=== PATIENT | female | born 1980 | race Caucasian/White ===

== ENCOUNTER 2020-07-19 20:24 | Emergency (ER) | payer OTHER ==
[~2020-07-19] VITALS: Ht 160 cm; Wt 92.5 kg
[~2020-07-19 20:24] MED LIST: ACCU MC; ACET-8386 PO; CLIN300C6 PO; GLIP5TER PO; METF500T PO; SULF-59 PO
[2020-07-19 20:36] VITALS: BP 135/97
--- NOTE | 2020-07-19 20:47 | NUR ---
PT AMBULATED TO BED 04, STEADY GAIT
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
--- NOTE | 2020-07-19 20:59 | NUR ---
ermd at bedside evaluating pt
[2020-07-19] MEDS ORDERED: KETOROLAC 30 MG/ML VIAL IM ONE (21:10)
[2020-07-19 21:30] VITALS: BP 135/97
== END 2020-07-19 21:30 | disposition home or self-care (01) ==
LOC: MED 20:24
DX: S16.1XXA Strain of muscle, fascia and tendon at neck level, initial encounter (principal); M25.511 Pain in right shoulder; M25.512 Pain in left shoulder; E11.9 Type 2 diabetes mellitus without complications; Z88.5 Allergy status to narcotic agent; Z79.899 Other long term (current) drug therapy; Z79.84 Long term (current) use of oral hypoglycemic drugs; V49.9XXA Car occupant (driver) (passenger) injured in unspecified traffic accident, initial encounter; Y93.89 Activity, other specified; Y92.89 Other specified places as the place of occurrence of the external cause; Y99.8 Other external cause status
CPT/HCPCS: 96372; 99283; J1885

== ENCOUNTER 2020-11-10 09:09 | Emergency (ER) | payer OTHER ==
[~2020-11-10] VITALS: Ht 160 cm; Wt 88.5 kg
[2020-11-10 09:17] VITALS: BP 124/79
--- NOTE | 2020-11-10 09:23 | NUR ---
PATIENT TRIAGED. WAITING IN LOBBY.
[2020-11-10] MEDS ORDERED: NACL 0.9% 1,000 ML IV ONE ×2 (09:35→13:25)
--- NOTE | 2020-11-10 09:56 | NUR ---
PT WALKED TO CHAIR B. IV FLUIDS STARTED ORDERED.
[2020-11-10] MEDS ORDERED: ONDANSETRON 4 MG/2 ML VIAL IVP ONE ×2 (10:55→16:20)
[2020-11-10 11:48] LABS: BASOPHILS % (AUTO) 0.5 % (0.0-2.0); EOSINOPHILS % (AUTO) 0.1 % (0.0-4.0); HEMATOCRIT 44.7 % (36-48); HEMOGLOBIN 15.2 g/dL (12.0-16.0); LYMPHOCYTES # (AUTO) 2.2 K/uL (2.5-16.5); LYMPHOCYTES % (AUTO) 32.5 % (20.5-51.1); MEAN CORPUSCULAR HEMOGLOBIN 30 pg (27-31); MEAN CORPUSCULAR HGB CONC 34 g/dL (33-37); MONOCYTES # (AUTO) 0.8 K/uL (0.8-1.0); NEUTROPHILS # (AUTO) 3.6 K/uL (1.8-7.7); NEUTROPHILS % (AUTO) 54.9 % (42.2-75.2); PLATELET COUNT (AUTO) 247 K/uL (140-450); RED BLOOD CELL COUNT(AUTO) 5.03 MIL/uL (4.20-5.40); RED CELL DISTRIBUTION WIDTH 11.8 % (11.6-13.7); WHITE BLOOD COUNT (AUTO) 6.6 K/uL (4.8-10.8)
[2020-11-10 12:18] LABS: ANION GAP 16.3 (8-16); CARBON DIOXIDE 23.4 mmol/L (21-32); CREATININE 0.9 mg/dL (0.6-1.3); POTASSIUM 5.7 mmol/L (3.5-5.1); TOTAL BILIRUBIN 0.4 mg/dL (0.0-1.0)
--- NOTE | 2020-11-10 13:12 | NUR ---
TAKE PT TO [facility].
[2020-11-10] MEDS ORDERED: INSULIN REGULAR, HUMAN 100 UNIT/ML VIAL IV ONE (13:20)
--- NOTE | 2020-11-10 15:46 | NUR ---
PT STATES SHE DOES NOT TAKE ANY MEDICATIONS AT HOME.
[2020-11-10 16:30] VITALS: BP 118/75
--- NOTE | 2020-11-10 16:30 | NUR ---
Patient discharged with v/s stable. Written and verbal after care instructions given and explained. Patient alert, oriented and verbalized understanding of instructions. Ambulatory with steady gait. All questions addressed prior to discharge. ID band removed. Patient advised to follow up with PMD. Rx of Metformin and Zofran given. Patient educated on indication of medication including possible reaction and side effects. Opportunity to ask questions provided and answered.
--- NOTE | 2020-11-12 16:58 | NUR ---
LATE ENTRY -- INSULIN IVP ENDED 2817 11/10/20
== END 2020-11-10 16:30 | disposition home or self-care (01) ==
LOC: MED 09:09
DX: E11.9 Type 2 diabetes mellitus without complications (principal); R11.2 Nausea with vomiting, unspecified; E86.0 Dehydration; Z79.2 Long term (current) use of antibiotics; Z79.891 Long term (current) use of opiate analgesic; Z79.84 Long term (current) use of oral hypoglycemic drugs; Z88.5 Allergy status to narcotic agent
CPT/HCPCS: 36415; 71045; 80053; 82009; 83605; 83690; 84132; 84484; 85025; 93005; 96361; 96374; 96375; 96376; 99285; J1815; J2405; J7030

== ENCOUNTER 2020-11-19 17:24 | Observation (INO) | payer OTHER, SELFPAY ==
[~2020-11-19] VITALS: Ht 160 cm; Wt 88.5 kg
[2020-11-19 17:58] VITALS: BP 125/76
[2020-11-19 20:10] LABS: BASOPHILS # (AUTO) 0.1 K/uL (0.00-0.22); BASOPHILS % (AUTO) 0.7 % (0.0-2.0); EOSINOPHILS # (AUTO) 0.1 K/uL (0-0.4); EOSINOPHILS % (AUTO) 0.8 % (0.0-4.0); HEMATOCRIT 42.1 % (36-48); HEMOGLOBIN 14.6 g/dL (12.0-16.0); LYMPHOCYTES # (AUTO) 3.3 K/uL (2.5-16.5); LYMPHOCYTES % (AUTO) 36.2 % (20.5-51.1); MEAN CORPUSCULAR HEMOGLOBIN 31 pg (27-31); MEAN CORPUSCULAR HGB CONC 35 g/dL (33-37); MEAN CORPUSCULAR VOLUME 88.1 fL (80-94); MONOCYTES # (AUTO) 0.8 K/uL (0.8-1.0); MONOCYTES % (AUTO) 8.6 % (1.7-9.3); NEUTROPHILS # (AUTO) 4.8 K/uL (1.8-7.7); NEUTROPHILS % (AUTO) 53.7 % (42.2-75.2); PLATELET COUNT (AUTO) 411 K/uL (140-450); RED BLOOD CELL COUNT(AUTO) 4.78 MIL/uL (4.20-5.40); RED CELL DISTRIBUTION WIDTH 12.3 % (11.6-13.7)
[2020-11-19 21:05] LABS: ALBUMIN 3.4 g/dL (3.4-5.0); ANION GAP 14.3 (8-16); CARBON DIOXIDE 27.7 mmol/L (21-32); CREATININE 0.8 mg/dL (0.6-1.3); TOTAL BILIRUBIN 0.3 mg/dL (0.0-1.0)
[2020-11-19] MEDS ORDERED: INSULIN REGULAR, HUMAN 100 UNIT/ML VIAL IV SCH (21:35)
--- NOTE | 2020-11-19 21:55 | NUR ---
SEEN AND EXAMINED BY BROWN WITH ORDERS AND CARRIED OUT
[2020-11-19 22:26] LABS: MAGNESIUM 2.1 mg/dL (1.8-2.4)
[2020-11-19] MEDS: NACL 0.9% 1,000 ML IV SCH ×3 (22:36→23:37)
[2020-11-19 22:37] LABS: APPEARANCE,URINE CLEAR (CLEAR); BILIRUBIN,URINE NEGATIVE (NEGATIVE); BLOOD, URINE 2+ (NEGATIVE); COLOR,URINE YELLOW (YELLOW); LEUKOCYTE ESTERASE ,URINE NEGATIVE (NEGATIVE); NITRITE, URINE NEGATIVE (NEGATIVE); UGLUCOSE 3+ (NEGATIVE)
[2020-11-19 23:07] LABS: WBC,URINE 0-5 /HPF (0-5)
[2020-11-20] MEDS ORDERED: ONDANSETRON 4 MG/2 ML VIAL IVP PRN (00:40)
[2020-11-20] MEDS ORDERED: ACETAMINOPHEN 325 MG TAB PO PRN (00:40)
[2020-11-20] MEDS ORDERED: HYDROcodone/APAP 5/325 MG 1 TAB TAB PO PRN (00:40)
[2020-11-20] MEDS ORDERED: LORazepam 2 MG/ML VIAL IVP PRN (00:40)
[2020-11-20] MEDS ORDERED: DEXTROSE 50% 50 ML SYR IVP PRN (00:40)
--- NOTE | 2020-11-20 02:46 | NUR ---
PT MOVED TO BED #11
--- NOTE | 2020-11-20 03:30 | NUR ---
RECEIVED REPORT FROM YOUSIF LOPEZ FOR CONTINUATION OF CARE AT THIS TIME.
--- NOTE | 2020-11-20 03:40 | NUR ---
PT IS RESTING, VISIBLE RISE AND FALL OF CHEST NOTED. NO ACUTE DISTRESS AT THIS TIME. CALL LIGHT WITHIN REACH. PT CONNECTED TO THE ATMOSPHERIC TECHNICIAN. SIDE RAILSX1. WILL CONTINUE TO MONITOR.
[2020-11-20] MEDS: NACL 0.9% 1,000 ML IV SCH ×2 (03:43→14:49)
--- NOTE | 2020-11-20 05:31 | NUR ---
NEW IV STARTED---20 G RIGHT WRIST. NS RUNNING AT 80 ML/HR PER MD ORDERS.
--- NOTE | 2020-11-20 05:32 | NUR ---
PT IS RESTING, LIGHTS TURNED OFF, VISIBLE RISE AND FALL OF CHEST NOTED. NO ACUTE DISTRESS AT THIS TIME. CALL LIGHT WITHIN REACH. PT CONNECTED TO THE VENEER STOCK LAYER. SAO2 @97% ON RA. SIDE RAILSX1. WILL CONTINUE TO MONITOR.
--- NOTE | 2020-11-20 05:46 | NUR ---
THEE AND MJ MELENDEZ COLLECTED AND WALKED OVER TO LAB AT THIS TIME.
--- NOTE | 2020-11-20 05:49 | NUR ---
CALLED PHARMACY REGARDING PTS ALLERGY TO CODEINE & NORCO BEING ORDERED. PHARMACIST STATED THAT THE MD IS AWARE OF THE ALLERGY.
--- NOTE | 2020-11-20 06:30 | NUR ---
PT IS RESTING, LIGHTS TURNED OFF, VISIBLE RISE AND FALL OF CHEST NOTED. NO ACUTE DISTRESS AT THIS TIME. CALL LIGHT WITHIN REACH. PT CONNECTED TO THE SALES SUPPORT ADMINISTRATOR. SAO2 @98% ON RA. SIDE RAILSX1. WILL CONTINUE TO MONITOR.
--- NOTE | 2020-11-20 06:55 | NUR ---
BLOOD SUGAR WAS 320 WILL ADMIN HUMALOG PER INSULIN SLIDING SCALE
[2020-11-20] MEDS: BLOOD GLUCOSE MONITORING 1 DEV DEV FS SCH ×2 (07:01→11:24)
[2020-11-20] MEDS: INSULIN LISPRO SLIDING SCALE 100 UNITS/ML VIAL SUBQ PRN ×2 (07:23→12:06)
--- NOTE | 2020-11-20 07:37 | NUR ---
TRANSFER OF CARE AT THIS TIME FROM YOUSIF OLSON
--- NOTE | 2020-11-20 07:43 | NUR ---
PER BLOOD BANK, CONVALESCENT PLASMA READY TO BE PICKED UP.
--- NOTE | 2020-11-20 08:15 | NUR ---
PT SITTING UP IN BED EATING BREAKFAST.
--- NOTE | 2020-11-20 08:34 | NUR ---
PT GIVEN A WATER PITCHER AT BEDSIDE. ALL NEEDS MET AT THIS TIME
[2020-11-20] MEDS ORDERED: ENOXAPARIN 40 MG/0.4 ML SYR SUBQ SCH (09:00)
--- NOTE | 2020-11-20 09:02 | NUR ---
PT ASLEEP, RESTING IN BED, RR EVEN AND UNLABORED.
--- NOTE | 2020-11-20 10:16 | NUR ---
PATIENT HAS BEEN SCREENED AND CATEGORIZED MODERATE NUTRITION RISK. PATIENT WILL BE SEEN WITHIN 3-5 DAYS OF ADMISSION. 11/23/20-11/25/[address]
--- NOTE | 2020-11-20 10:58 | NUR ---
PT AMBULATED TO BATHROOM, STEADY GAIT.
--- NOTE | 2020-11-20 11:27 | NUR ---
PT REPORTING HEADACHE. PT GIVEN PRN TYLENOL
--- NOTE | 2020-11-20 11:37 | NUR ---
LAB CALLED TO DRAW PT.
--- NOTE | 2020-11-20 11:47 | NUR ---
LAB AT BEDSIDE.
[2020-11-20 13:13] LABS: ANION GAP 15.2 (8-16); CARBON DIOXIDE 25.3 mmol/L (21-32); CREATININE 0.6 mg/dL (0.6-1.3); POTASSIUM 3.5 mmol/L (3.5-5.1)
--- NOTE | 2020-11-20 13:58 | NUR ---
PT ASLEEP IN BED, RR EVEN AND UNLABORED.
--- NOTE | 2020-11-20 14:00 | NUR ---
DC [age] YRS OLD FEMALE PATIENT WAS ADMITTED FROM HOME WITH A DX OF WEAKNESS AND HYPERGLYCEMIA. BLOOD GLUCOSE ON ADMISSION WAS 478. PT HAS A HX OF DIABETES. RAPID COVID TEST NEGATIVE HEAD CT SHOWED NO SIGNIFICANT INTRACRANIAL PATHOLOGY. ADMINISTERED REGULAR INSULIN BLOOD GLUCOSE 286. DC PLAN TO GO HOME WHEN STABLE
--- NOTE | 2020-11-20 14:14 | NUR ---
VS WNL. RR EVEN AND UNLABORED. BED IN LOWEST POSITION. ALL NEEDS MET AT THIS TIME.
--- NOTE | 2020-11-20 15:15 | NUR ---
PT GIVEN A PITCHER OF ICE WATER AND CRACKERS.
[2020-11-20] MEDS ORDERED: INSU100S22 SUBQ (15:29)
--- NOTE | 2020-11-20 15:34 | NUR ---
SOCIAL WORK NOTE: SW WAS UNABLE TO MEET PATIENT AT BEDSIDE DUE TO MEDICAL CONDITION. ERIKA LEFT WITH PATIENT'S SISTER OTTO ALMANZAR [phone] TO COMPLETE ASSESSMENT. ERIKA WILL FOLLOW UP.
[2020-11-20 16:06] VITALS: BP 137/88
[2020-11-20 16:18] VITALS: BP 114/73
--- NOTE | 2020-11-20 16:19 | NUR ---
PT DISCHARGED WITH VS STABLE AND PRESCRIPTION OF INSULIN GLARGINE
[2020-11-21] MEDS ORDERED: ASPIRIN 81 MG TAB.CHEW PO SCH (09:00)
--- NOTE | 2020-11-28 12:38 | NUR ---
LATE ENTRY -- NORMAL SALINE INFUSION ENDED AT 1600 11/20/20
== END 2020-11-20 16:19 | disposition home or self-care (01) ==
LOC: MED 17:24 → MTU 11-20 00:42
PROVIDERS: ADMIT Internal Medicine; ATTEND Internal Medicine
DX: E11.65 Type 2 diabetes mellitus with hyperglycemia (principal); Z20.828 Contact with and (suspected) exposure to other viral communicable diseases; E87.1 Hypo-osmolality and hyponatremia; R53.1 Weakness; Z79.84 Long term (current) use of oral hypoglycemic drugs; Z88.5 Allergy status to narcotic agent; W18.39XA Other fall on same level, initial encounter; Y93.01 Activity, walking, marching and hiking; Y92.89 Other specified places as the place of occurrence of the external cause
CPT/HCPCS: 36415; 70450; 80048; 80053; 81001; 82550; 82948; 83036; 83735; 84443; 84703; 85025; 87081; 87426; 93005; 96361; 96372; 96374; 99285; G0378; J1650

== ENCOUNTER 2022-01-08 16:36 | Emergency (ER) | payer OTHER, SELFPAY ==
[~2022-01-08] VITALS: Ht 160 cm; Wt 88.5 kg
[~2022-01-08 16:36] MED LIST changes: -CLIN300C6 PO; +INSU100S22 SUBQ; -SULF-59 PO
[2022-01-08 16:40] VITALS: BP 153/96
--- NOTE | 2022-01-08 16:45 | NUR ---
PT W/C ASSISTED TO BED
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
[2022-01-08] MEDS ORDERED: IBUP-2213 PO (18:00)
--- NOTE | 2022-01-08 18:30 | NUR ---
ALETHA HIRSCH AT BEDSIDE APPLYING SHORT LEG SPLINT TO PT RIGHT FOOT, ALSO PROVIDING CRUTCH TRAINING.
[2022-01-08 18:36] VITALS: BP 133/91
== END 2022-01-08 18:36 | disposition home or self-care (01) ==
LOC: MED 16:36
DX: S82.251A Displaced comminuted fracture of shaft of right tibia, initial encounter for closed fracture (principal); E11.9 Type 2 diabetes mellitus without complications; Z79.4 Long term (current) use of insulin; Z79.899 Other long term (current) drug therapy; Z88.5 Allergy status to narcotic agent; X50.1XXA Overexertion from prolonged static or awkward postures, initial encounter; Y93.89 Activity, other specified; Y92.89 Other specified places as the place of occurrence of the external cause; Y99.8 Other external cause status
CPT/HCPCS: 29515; 73630; 99283; Q0092